=== PATIENT | female | born 1950 | race Caucasian/White ===

== ENCOUNTER 2024-12-08 13:02 | Outpatient (AMB) | payer MEDICARE, SELFPAY ==
--- NOTE | 2024-12-08 13:06 | MHC.PC.OV ---
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 Intake Note: patient here for new patient visit Supervisor Public Message Service Required: No Is last menstrual period known: No Post menopausal: No Patient : No Allergies aripiprazole (From Abilify) Allergy (Severe, Verified 12/08/24 13:12) blindness sulfamethoxazole (From Bactrim) Allergy (Severe, Verified 12/08/24 13:12) Hives trimethoprim (From Bactrim) Allergy (Severe, Verified 12/08/24 13:12) Hives quetiapine (From Seroquel) Allergy (Intermediate, Verified 12/08/24 13:12) Confusion Iodinated Contrast Media (IV Contrast Dye) Allergy (Mild, Verified 12/08/24 13:12) Rash Medication List - Last Reconciled 12/08/24 by Pina Rodriguez PA-C alendronate 40 mg PO QWEEK aspirin (Adult Low Dose Aspirin) 81 mg PO DAILY atorvastatin (Lipitor) 40 mg PO BEDTIME calcium carb,glucon-vitamin D2 500 mg-5 mcg (200 unit) tabs PO DAILY lamotrigine (Lamictal) 100 mg PO BID lisinopril 10 mg PO DAILY Tobacco use date assessed: 12/08/24 Fall risk assessment: No Falls in past year Last assessed Fall Risk: 12/08/24 Dental Screening Dental Screen Date: 12/08/24 Did you have a dental visit in the last 12 months?: Yes Did you have a dental problem in the last 6 months where you did not have access to dental care?: No Was dental information given to patient?: Patient has dentist HPI CLOUD SUBJECT MATTER EXPERT // PE Request HPI Details Patient is a 74-year-old female who presents today to [facility]. She is transferring from [facility], Dr. Sanders. She has a significant past medical history of osteoporosis, hyperlipidemia, CAD, HTN and bipolar, alcohol abuse Psych: On Lamictal 100 mg twice a day. Hx of bipolar and alcohol abuse. Sober since 1996. She follows with [facility]. CV: Blood pressure today in the office is elevated at 190/88. States that she thinks that she has white coat hypertension however, recent blood pressures have been a little bit more elevated than normal but states that not this high. She used to be on metoprolol but ended up having syncope from hypotension with this. Cholesterol has been managed with atorvastatin 40 mg. She is on a daily baby aspirin. She follows with [facility] cardiology. She states in 2022 she went to ED with cp and had a full work up and states everything was negative. metoprolol caused syncope Msk: hip replacement 2015 and 2021. Recent right shoulder cortisone injection for OA SHe is very active with swimming, biking. 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: Osteoporosis-on alendronate, Following with [facility] endo for severe osteoporosis Mammo: utd, roca Colonoscopy: due 2029 Research/Program Director: s/p partial hysterectomy [facility] Medical History (Updated 12/08/24 @ 13:46 by Pina Rodriguez PA-C) Stable angina Heart disease High cholesterol Asthma Surgical History (Updated 12/08/24 @ 13:39 by Kristan Ferreira MA) H/O tubal ligation H/O: hysterectomy History of bilateral hip replacements Family History (Updated 12/08/24 @ 13:36 by Kristan Ferreira MA) Brother Alcohol abuse Substance abuse High blood pressure High cholesterol Mother Alcohol abuse High cholesterol Thyroid disorder Maternal Aunt Alcohol abuse Maternal Uncle Alcohol abuse Family/Other No problems noted. Father High blood pressure Cardiovascular disease Maternal Grandmother High blood pressure Cardiovascular disease Father Diabetes Paternal Grandfather Cardiovascular disease Social History (Updated 12/08/24 @ 13:19 by Kristan Ferreira MA) Housing: Apartment Patient Tobacco Use Status: Never used Tobacco e-Cigarette/Vaping Use: Never Used Second Hand Smoke Exposure: No Substance Use Type: Marijuana service: No Current occupational status: retired Cognitive needs: No Hearing needs: No Vision needs: Yes Questionnaire PHQ-9 Over the last 2 weeks, how often have you been bothered by any of the following problems? 1. Little interest or pleasure in doing things: not at all 2. Feeling down, depressed, or hopeless: not at all 3. Trouble falling or staying asleep, or sleeping too much: not at all 4. Feeling tired or having little energy: not at all 5. Poor appetite or overeating: not at all 6. Feeling bad about yourself - or that you are a failure or have let yourself or your family down: not at all 7. Trouble concentrating on things, such as reading the newspaper or watching television: not at all 8. Moving or speaking so slowly that other people could have noticed. Or the opposite - being so fidgety or restless that you have been moving around a lot more than usual: not at all 9. Thoughts that you would be better off or of hurting yourself in some way: not at all Total score: 0 Depression Screening Interpretation: Negative Depression Screening Done: Yes 91451 - PHQ-9 Billing: Yes Source: Developed by Drs. Ronn Leary, Jenifer Burns, Robin Brandt and colleagues, with an educational candace from [employer]. Thrive Questionnaire Date Thrive assessed: 12/08/24 I am a: Patient What is your living situation today?: I have a steady place to live Within the past 12 months, did the food you bought not last and you didn't have the money to get more?: Never true Within the past 12 months, did you worry whether your food would run out before you got money to buy more?: Never true Do you have trouble paying for medicines?: No Do you have trouble getting transportation to medical appointments?: No Do you have trouble paying your heating and electricity bill?: No Do you have trouble taking care of your child, family member or friend?: No Do you have trouble with day-to-day activities such as bathing, preparing meals, shopping, managing finances, etc.?: No Are you currently unemployed and looking for a job?: Yes Are you interested in more education?: No Please select the resources that you would like help with: None Currently or been in a relationship where the following occur: No concerns reported THRIVE Score: 0 AUDIT C Alcohol Use Questionnaire (AUDIT-C) 1. How often do you have a drink containing alcohol?: Never 3. How often do you have six or more drinks on one occasion?: Never Total Score: 0 Score Reviewed/Action Taken: Yes URSULA-7 AMB Questionnaire URSULA-7 Date URSULA - 7 assessed: 12/08/24 Feeling nervous, anxious, or on edge: 0 = Not at all Not being able to stop or control worryin = Not at all Worrying too much about different things: 0 = Not at all Trouble relaxin = Not at all Being so restless that it is hard to sit still: 0 = Not at all Becoming easily annoyed or irritable: 0 = Not at all Feeling afraid as if something awful might happen: 0 = Not at all Total URSULA-7 score (0-4 normal; 5-9 mild; 10-14 moderate; 15-21 severe): 0 Source: Developed by Drs. Ronn Leary, Jenifer Burns, Robin Brandt and colleagues, with an educational candace from [employer]. URSULA-7 Assessment Billing URSULA-7 Assessment Tool: URSULA-7 Assessment 87171 ACT Questionnaire In the past 4 weeks, how much of the time did your asthma keep you from getting as much done at work, school or at home?: None of the time During the past 4 weeks, how often have you had shortness of breath?: Not at all During the past 4 weeks, how often did your asthma symptoms wake you up at night or earlier than usual in the morning?: Not at all During the past 4 weeks, how often have you had to use your rescue inhaler or nebulizer medication?: Not at all How would you rate your asthma control during the past 4 weeks?: Completely controlled ACT Interpretation: Negative Score: 25 Physical exam (Primary Care) Vital Signs: Last Vital Signs Temp 97.9 F 12/08/24 13:19 Pulse 86 12/08/24 13:19 Resp 16 12/08/24 13:19 Pulse Ox 96 12/08/24 13:19 Oxygen Delivery Method Room Air 12/08/24 13:19 BMI result Body Mass Index 29.2 PHQ-9: PHQ-9 Score PHQ-9: Total score 0 12/08/24 13:08 Depression Screening Interpretation: Negative Thrive Assessment: Date of Thrive Assessment Date Thrive assessed 12/08/24 12/08/24 13:08 Currently or been in a relationship where the following occur: No concerns reported Const Orientation/consciousness: patient oriented x3 HENMT Ears: hearing grossly normal bilaterally Neck Thyroid: Thyroid normal Lymphatic: no lymphadenopathy noted Resp Auscultation: clear to auscultation bilaterally Cardio Rate: regular rate Rhythm: regular rhythm Heart sounds: S1 normal heart sound present and S2 normal heart sound present GI Inspection: Yes normal to inspection Palpation (GI): Soft to palpation and Other GI palpation findings present (nontender, no cva tenderness) Auscultation: normoactive bowel sounds Rectal Exam - Female: deferred Skin General skin exam: no rashes or lesions noted Neuro General: patient oriented x3, gait normal and no focal motor deficits Coding Level of Care Code New Pt Level 4 (39598) Complex EM visit Add On G2211 Diagnoses Dyslipidemia E78.5 HTN (hypertension) I10 Bipolar 2 disorder F31.81 Additional Codes URSULA-7 Assessment Billing - URSULA-7 Assessment Tool: URSULA-7 Assessment 83091 ([id number]) PHQ-9 - 73521 - PHQ-9 Billing: Yes ([id number]) Asthma Control Questionnaire - ACT Interpretation: Negative ([id number]) Assessment & Plan Assessment & Plan (1) Dyslipidemia: Code(s): E78.5 - Hyperlipidemia, unspecified Category: Medical Plan: Currently on atorvastatin 40 mg. We will check lipids and LFTs. (2) HTN (hypertension): Code(s): I10 - Essential (primary) hypertension Category: Medical Plan: States that blood pressures at home are much better than this but we will start on lisinopril. Discussed risks and benefits and adverse effects of this medication. (3) Bipolar 2 disorder: Code(s): F31.81 - Bipolar II disorder Category: Medical Plan: Stable with Lamictal. Plan Labs ordered today. We will follow up pending test results Orders: Orders TSH reflex Free T4 Today E78.5 - Hyperlipidemia, unspecified, F31.81 - Bipolar II disorder, I10 - Essential (primary) hypertension UA CC w/rflx Micro + Cult Today E78.5 - Hyperlipidemia, unspecified, F31.81 - Bipolar II disorder, I10 - Essential (primary) hypertension, Z13.220 - Encounter for screening for lipoid disorders Microalbumin, Random (w Creat) Today E78.5 - Hyperlipidemia, unspecified, F31.81 - Bipolar II disorder, I10 - Essential (primary) hypertension Complete Blood Count Auto Diff Today E78.5 - Hyperlipidemia, unspecified, F31.81 - Bipolar II disorder, I10 - Essential (primary) hypertension Comprehensive [place]. Panel Fast Today E78.5 - Hyperlipidemia, unspecified, F31.81 - Bipolar II disorder, I10 - Essential (primary) hypertension Lipid Panel Today E78.5 - Hyperlipidemia, unspecified, F31.81 - Bipolar II disorder, I10 - Essential (primary) hypertension Hemoglobin A1c Today E78.5 - Hyperlipidemia, unspecified, F31.81 - Bipolar II disorder, I10 - Essential (primary) hypertension, R73.01 - Impaired fasting glucose Medications: New lisinopril 10 mg PO DAILY 90 tabs 0RF
[2024-12-08 13:19] VITALS: BP 182/82; PULSE 86; RESP 16; TEMP 36.6; O2SAT 96; BMI 29.2
[2024-12-08 13:30] VITALS: BP 190/88
--- OUTSIDE RECORDS SUMMARY | 2024-12-08 13:53 | XMS_ITS ---
Author Name [facility] Organization Unknown Care Team Organization Name Specialty Phone Email Start Date End Da te [facility] NULL Primary Care 10/03/2022 12/14/2023 [facility] Termed, PROVIDER Primary Care 03/04/202211/25
== END 2024-12-08 14:08 | disposition home or self-care (01) ==
LOC: HO.HMCFM 13:03
PROVIDERS: PCP Physician Assistant; Visit Provider Physician Assistant
DX: E78.5 Hyperlipidemia, unspecified (principal); I10 Essential (primary) hypertension; F31.81 Bipolar II disorder

== ENCOUNTER → 2024-12-08 13:02 | Outpatient (BNVA) | payer MEDICARE, SELFPAY | PROVIDERS: PCP Physician Assistant; Visit Provider Physician Assistant | DX: M81.0 Age-related osteoporosis without current pathological fracture (principal); E78.5 Hyperlipidemia, unspecified; I25.10 Atherosclerotic heart disease of native coronary artery without angina pectoris; I10 Essential (primary) hypertension; F31.81 Bipolar II disorder; Z79.899 Other long term (current) drug therapy | CPT/HCPCS: 96127; 96160; 99202 ==

== ENCOUNTER 2024-12-28 09:40 | Outpatient (REF) | payer MEDICARE, SELFPAY ==
[2024-12-28 11:25] LABS: MANUAL DIFF FLAG NO
[2024-12-28 11:38] LABS: Hematocrit 37.6 % (37.0-47.0); Hemoglobin 12.7 g/dl (12.0-16.0); Imm Gran Abs Auto 0.03 X10*3/uL (0.00-0.03); Imm Gran Pct Auto 0.4 % (0.0-0.4); Lymphocytes Absolute Auto 2.8 X10*3/uL (1.2-4.9); Mean Corpuscular HGB Conc 33.8 g/dl (31.0-35.0); Mean Corpuscular Hemoglobin 31.5 pg (27.0-33.0); Mean Corpuscular Volume 93.3 fL (80.0-98.0); NRBC Abs Auto 0.000 X10*3/uL (0.0-0.012); NRBC Pct Auto 0.0 /100WBC (0.0-0.2); Platelet Count 355 X10*3/uL (160-400); Red Blood Count 4.03 X10*6/uL (4.20-5.50); White Blood Count 8.1 X10*3/uL (4.8-10.8)
[2024-12-28 11:39] LABS: Appearance Urine Clear; Glucose Urine UA Negative (Negative); PH 7.5 (5.0-9.0); Specific Gravity - Urine 1.010 (1.005-1.025)
[2024-12-28 11:49] LABS: Hemoglobin A1C 118.8554 umol/L; Total Hemoglobin (HGBA1C) 3335.6932 umol/L
[2024-12-28 12:16] LABS: Alanine Aminotransferase 22 U/L (0-31); Albumin Level 4.7 g/dL (3.5-5.0); Alkaline Phosphatase 82 U/L (39-117); Anion Gap 12 (12-20); Aspartate Amino Transferase 28 U/L (5-31); Blood Urea Nitrogen 11 mg/dL (9-16); Calcium 9.4 mg/dL (8.4-10.2); Carbon Dioxide 26 mmol/L (22-29); Chloride 98 mmol/L (96-108); Cholesterol 197 mg/dL (<200); Estimated Glomerular Filt Rate > 60; HDL Cholesterol 66 mg/dL (>40); Potassium 4.8 mmol/L (3.3-5.1); Sodium 131 mmol/L (135-145); Total Protein 7.2 g/dL (6.5-8.0); Triglycerides 131 mg/dL (<150)
== END 2024-12-28 09:41 | disposition home or self-care (01) ==
LOC: HO.WFDLDS 09:40
PROVIDERS: Visit Provider Physician Assistant
DX: I10 Essential (primary) hypertension (principal); F31.81 Bipolar II disorder; R73.01 Impaired fasting glucose; E78.5 Hyperlipidemia, unspecified; Z13.220 Encounter for screening for lipoid disorders
CPT/HCPCS: 36415; 80053; 80061; 81003; 82043; 82570; 83036; 84443; 85025

== ENCOUNTER 2025-01-25 13:36 | Outpatient (REF) | payer MEDICARE, SELFPAY ==
[2025-01-25 18:22] LABS: Anion Gap 10 (12-20); Blood Urea Nitrogen 17 mg/dL (9-16); Calcium 9.0 mg/dL (8.4-10.2); Carbon Dioxide 26 mmol/L (22-29); Chloride 98 mmol/L (96-108); Estimated Glomerular Filt Rate > 60; Potassium 4.7 mmol/L (3.3-5.1); Sodium 129 mmol/L (135-145)
== END 2025-01-25 13:37 | disposition home or self-care (01) ==
LOC: HO.WFDLDS 13:36
PROVIDERS: PCP Physician Assistant; Visit Provider Physician Assistant
DX: I10 Essential (primary) hypertension (principal); E78.5 Hyperlipidemia, unspecified; E87.1 Hypo-osmolality and hyponatremia
CPT/HCPCS: 36415; 80048; 99212

== ENCOUNTER 2025-01-25 13:36 | Outpatient (AMB) | payer MEDICARE, SELFPAY ==
--- NOTE | 2025-01-25 13:43 | MHC.PC.OV ---
Vital Signs 01/25/25 13:44 Height 5 ft 3 in Weight 164 lb BMI 29.0 BP 102/70 Blood Pressure Location Rt brachial Position Sitting Respiration 14 Pulse 80 Pulse Source Pulse Oximeter Pulse Oximetry (%) 97 Oxygen Delivery Method Room Air Intake Visit Reasons: bp check and meds and labs Intake Note: Blood pressure follow up. Forget to get labs done prior to appt. [employer] Required: No Allergies aripiprazole (From Abilify) Allergy (Severe, Verified 01/25/25 13:46) blindness sulfamethoxazole (From Bactrim) Allergy (Severe, Verified 01/25/25 13:46) Hives trimethoprim (From Bactrim) Allergy (Severe, Verified 01/25/25 13:46) Hives quetiapine (From Seroquel) Allergy (Intermediate, Verified 01/25/25 13:46) Confusion Iodinated Contrast Media (IV Contrast Dye) Allergy (Mild, Verified 01/25/25 13:46) Rash Medication List - Last Reconciled 01/25/25 by Pina Rodriguez PA-C alendronate 40 mg PO QWEEK aspirin (Adult Low Dose Aspirin) 81 mg PO DAILY atorvastatin (Lipitor) 40 mg PO BEDTIME calcium carb,glucon-vitamin D2 500 mg-5 mcg (200 unit) tabs PO DAILY lamotrigine (Lamictal) 100 mg PO BID lisinopril 30 mg PO DAILY Tobacco use date assessed: 01/25/25 Dental Screening Dental Screen Date: 12/08/24 HPI bp check and meds and labs HPI Details Patient is a 74-year-old female who presents today for a follow up regarding her blood pressure. She has a significant past medical history of osteoporosis, hyperlipidemia, CAD, HTN and bipolar, alcohol abuse Psych: On Lamictal 100 mg twice a day. Hx of bipolar and alcohol abuse. Sober since 1996. She follows with [facility]. CV: Blood pressure today in the office is 102/70. Doing well on lisinopril 30 mg daily. Cholesterol has been managed with atorvastatin 40 mg. She is on a daily baby aspirin. She follows with [facility] cardiology. She states in 2022 she went to ED with cp and had a full work up and states everything was negative. metoprolol caused syncope Msk: hip replacement 2015 and 2021. Recent right shoulder cortisone injection for OA. Following at [facility]. SHe is very active with swimming, biking. 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 Father High blood pressure Cardiovascular disease Maternal Grandmother High blood pressure Cardiovascular disease Father Diabetes Paternal Grandfather Cardiovascular disease Social History (Updated 12/08/24 @ 13:19 by Kristan Ferreira MA) Housing: Apartment Patient Tobacco Use Status: Never used Tobacco e-Cigarette/Vaping Use: Never Used Second Hand Smoke Exposure: No Substance Use Type: Marijuana service: No Current occupational status: retired Cognitive needs: No Hearing needs: No Vision needs: Yes Questionnaire Thrive Questionnaire Date Thrive assessed: 12/08/24 I am a: Patient What is your living situation today?: I have a steady place to live Within the past 12 months, did the food you bought not last and you didn't have the money to get more?: Never true Within the past 12 months, did you worry whether your food would run out before you got money to buy more?: Never true Do you have trouble paying for medicines?: No Do you have trouble getting transportation to medical appointments?: No Do you have trouble paying your heating and electricity bill?: No Do you have trouble taking care of your child, family member or friend?: No Do you have trouble with day-to-day activities such as bathing, preparing meals, shopping, managing finances, etc.?: No Are you currently unemployed and looking for a job?: Yes Are you interested in more education?: No Please select the resources that you would like help with: None Currently or been in a relationship where the following occur: No concerns reported THRIVE Score: 0 URSULA-7 AMB Questionnaire URSULA-7 Date URSULA - 7 assessed: 12/08/24 Source: Developed by Drs. Ronn Leary, Jenifer Burns, Robin Brandt and colleagues, with an educational candace from [employer]. Physical exam (Primary Care) Tobacco/Smoking Status: Tobacco use Status Tobacco use date assessed 12/08/24 01/25/25 13:44 Patient Tobacco Use Status Never used Tobacco 01/25/25 13:44 e-Cigarette/Vaping Use Never Used 01/25/25 13:44 Thrive Assessment: Date of Thrive Assessment Date Thrive assessed 12/08/24 01/25/25 13:44 Currently or been in a relationship where the following occur: No concerns reported Const Orientation/consciousness: patient oriented x3 HENMT Ears: hearing grossly normal bilaterally Neck Thyroid: Thyroid normal Lymphatic: no lymphadenopathy noted Resp Auscultation: clear to auscultation bilaterally Cardio Rate: regular rate Rhythm: regular rhythm Heart sounds: S1 normal heart sound present and S2 normal heart sound present Skin General skin exam: no rashes or lesions noted Neuro General: patient oriented x3, gait normal and no focal motor deficits Results Reviewed Results Reviewed: Laboratory Tests 12/28/24 09:45 WBC 8.1 RBC 4.03 L Hgb 12.7 Hct 37.6 Plt Count 355 Sodium 131 L Potassium 4.8 Chloride 98 Carbon Dioxide 26 Anion Gap 12 BUN 11 Creatinine 0.79 Estimated GFR > 60 Fasting Glucose 90 Estimat Average Glucose 108 Hemoglobin A1c % 5.4 Calcium 9.4 Total Bilirubin 0.3 AST 28 ALT 22 Alkaline Phosphatase 82 Total Protein 7.2 Albumin 4.7 Triglycerides 131 Cholesterol 197 LDL Cholesterol, Calc 105 H HDL Cholesterol 66 TSH 0.95 Urine Creatinine 38.49 Urine Microalbumin < 5.0 Microalb/Creat Ratio TNP Coding Level of Care Code Est Pt Level 4 (56296) Complex EM visit Add On G2211 Diagnoses HTN (hypertension) I10 Dyslipidemia E78.5 Hyponatremia E87.1 Assessment & Plan Assessment & Plan (1) HTN (hypertension): Code(s): I10 - Essential (primary) hypertension Category: Medical Plan: continue lisinopril 30 mg (2) Dyslipidemia: Code(s): E78.5 - Hyperlipidemia, unspecified Category: Medical Plan: continue lipitor 40 mg nightly (3) Hyponatremia: Code(s): E87.1 - Hypo-osmolality and hyponatremia Plan: will check labs
[2025-01-25 13:44] VITALS: BP 102/70; PULSE 80; RESP 14; O2SAT 97; BMI 29.0
== END 2025-01-25 13:57 | disposition home or self-care (01) ==
LOC: HO.HMCFM 13:37
PROVIDERS: PCP Physician Assistant; Visit Provider Physician Assistant
DX: I10 Essential (primary) hypertension (principal); E78.5 Hyperlipidemia, unspecified; E87.1 Hypo-osmolality and hyponatremia

== ENCOUNTER 2025-02-07 14:07 | Outpatient (REF) | payer MEDICARE, SELFPAY ==
[2025-02-07 18:31] LABS: Anion Gap 12 (12-20); Blood Urea Nitrogen 7 mg/dL (9-16); Calcium 8.8 mg/dL (8.4-10.2); Carbon Dioxide 26 mmol/L (22-29); Chloride 104 mmol/L (96-108); Estimated Glomerular Filt Rate > 60; Potassium 4.5 mmol/L (3.3-5.1); Sodium 137 mmol/L (135-145)
== END 2025-02-07 14:08 | disposition home or self-care (01) ==
LOC: HO.WFDLDS 14:07
PROVIDERS: Visit Provider Physician Assistant
DX: E87.1 Hypo-osmolality and hyponatremia (principal)
CPT/HCPCS: 36415; 80048